=== PATIENT | female | born 1995 | race Caucasian/White ===

== ENCOUNTER 2018-12-08 18:36 | Emergency (ER) | payer MEDICAID ==
[~2018-12-08] VITALS: Ht 167.6 cm; Wt 54.0 kg
[2018-12-08 19:20] LABS: BASOPHILS % (AUTO) 0.6 % (0-1); EOSINOPHILS # (AUTO) 0.1 X10'3 (0-0.9); EOSINOPHILS % (AUTO) 1.2 % (0-6); HEMATOCRIT 47.6 % (35.0-45.0); HEMOGLOBIN 16.3 g/dl (12.0-16.0); LYMPHOCYTES # (AUTO) 1.3 X10'3 (1.1-4.8); LYMPHOCYTES % (AUTO) 18.1 % (21-51); MEAN CORPUSCULAR HEMOGLOBIN 31.1 PG (27.0-31.0); MEAN CORPUSCULAR HGB CONC 34.3 g/dL (33.0-36.5); MEAN CORPUSCULAR VOLUME 90.7 FL (78-98); MEAN PLATELET VOLUME 8.4 FL (7.4-10.4); MONOCYTES # (AUTO) 0.8 X10'3 (0-0.9); MONOCYTES % (AUTO) 11.3 % (2-12); NEUTROPHILS # (AUTO) 4.9 X10'3 (1.8-7.7); NEUTROPHILS % (AUTO) 68.8 % (42-75); PLATELET COUNT 242 X10'3 (140-440); RED BLOOD COUNT 5.25 X10'6 (4.20-5.60); RED CELL DISTRIBUTION WIDTH 13.8 % (11.5-14.5); WHITE BLOOD COUNT 7.1 X10'3 (4.5-11.0)
[2018-12-08 19:32] LABS: HCG SERUM QL NEGATIVE
[2018-12-08 19:34] LABS: ALANINE AMINOTRANSFERASE 17 U/L (12-78); ALBUMIN 4.2 G/DL (3.4-5.0); ALBUMIN/GLOBULIN RATIO 1.1 (1.1-1.5); ALKALINE PHOSPHATASE 88 IU/L (46-116); ANION GAP 12 (8-16); ASPARTATE AMINO TRANSFERASE 20 U/L (10-37); BILIRUBIN,TOTAL 0.5 MG/DL (0.1-1.0); BLOOD UREA NITROGEN 13 MG/DL (7-18); BUN/CREATININE RATIO 12.7 (6.6-38.0); CHLORIDE 103 MMOL/L (99-107); CREATININE 1.02 MG/DL (0.40-0.90); GLUCOSE 101 MG/DL (70-104); POTASSIUM 3.4 MMOL/L (3.5-5.1); SODIUM 138 MMOL/L (135-145); TOTAL CARBON DIOXIDE 22.9 MMOL/L (24-32); TOTAL PROTEIN 7.9 G/DL (6.4-8.2); eGFR 67 ML/MIN
[2018-12-08] MEDS ORDERED: morphine 4 MG/ML inj SYRINge IV ONE (20:15)
[2018-12-08] MEDS ORDERED: ondansetron/PF 4mg/2ml inj IV ONE (20:15)
[2018-12-08] MEDS ORDERED: normal saline 1000ml 1,000 ML IV ONE (20:20)
[2018-12-08 20:30] LABS: CLARITY,URINE TURBID (Clear); COLOR,URINE RED (Yellow); GLUCOSE, URINE NEGATIVE (Neg); KETONES,URINE >=80 mg/dl (Neg); LEUKOCYTE ESTERASE ,URINE MODERATE (Neg); OCCULT BLOOD,URINE LARGE (Neg); PROTEIN,URINE 100 mg/dl (Neg)
[2018-12-08] MEDS ORDERED: methylPREDNISolone sod succ 125mg/2ml vial IV ONE (20:30)
[2018-12-08] MEDS ORDERED: LORazepam 2 mg/ml vial IV ONE (20:30)
[2018-12-08] MEDS ORDERED: haloperidol lactate 5mg/ml inj IM ONE (20:30)
[2018-12-08 20:32] LABS: NITRITES, URINE NEGATIVE (Neg); UA COLLECTION TYPE CLN CATCH MIDSTREAM
[2018-12-08 20:38] LABS: BACTERIA,URINE 2+ /HPF (Neg); MUCUS STRANDS NONE SEEN /LPF (Neg); RBC,URINE 50-100 /HPF (0-2); SQUAMOUS EPITHELIAL CELL,UR MODERATE /LPF (FEW); WBC,URINE 20-30 /HPF (0-4)
[2018-12-08] MEDS ORDERED: ketorolac trometh. 30mg/ml inj. IV ONE (21:25)
[2018-12-08 22:50] VITALS: BP 96/56
== END 2018-12-08 22:56 | disposition home or self-care (01) ==
LOC: ER 18:37
DX: R10.30 Lower abdominal pain, unspecified (principal); K92.1 Melena; F12.90 Cannabis use, unspecified, uncomplicated; Z88.0 Allergy status to penicillin; Z88.2 Allergy status to sulfonamides; Z88.1 Allergy status to other antibiotic agents
CPT/HCPCS: 36415; 80053; 81001; 84703; 85025; 85610; 87088; 96372; 96374; 96375; 99283; J1630; J1885; J2060; J2270; J2405; J2930; J7030